=== PATIENT | female | born 1955 | race Caucasian/White ===

== ENCOUNTER → 2016-07-18 | Outpatient (CLI) | payer BC ==
[~2016-07-18] MED LIST: CPR500 PO; LRT5 PO
== END | disposition home or self-care (01) ==
LOC: C.MAMM 10:31
PROVIDERS: ATTEND Internal Medicine
DX: M85.861 Other specified disorders of bone density and structure, right lower leg (principal); M85.862 Other specified disorders of bone density and structure, left lower leg

== ENCOUNTER → 2017-02-13 | Outpatient (CLI) | payer BC | END | disposition home or self-care (01) | LOC: C.PAPS 13:53 | PROVIDERS: ATTEND Obstetrics & Gynecology | DX: Z01.419 Encounter for gynecological examination (general) (routine) without abnormal findings (principal) ==

== ENCOUNTER → 2017-03-13 | Outpatient (CLI) | payer BC ==
--- NOTE | 2017-03-13 15:50 | DIAGNOSTIC IMAGING REPORT ---
LEFT FOOT 3 VIEWS CLINICAL HISTORY: Left foot pain. FINDINGS: 3 views of the left foot are obtained. No prior studies are available for comparison at the time of dictation. The skeletal structures are mildly osteopenic. No fracture is seen. Minimal arthritic changes present at the first metatarsophalangeal joint. The joint spaces of the foot are otherwise well-maintained. The overlying soft tissues are within normal limits. IMPRESSION: No acute bony abnormality is identified in the left foot. Electronically signed by: Kain Goetz M.D. 03/13/2017 3:48 PM Dictated Date/Time: 03/13/2017 3:47 PM
== END | disposition home or self-care (01) ==
LOC: C.RAD1850 15:28
PROVIDERS: ATTEND Physician Assistant
DX: M79.672 Pain in left foot (principal)

== ENCOUNTER → 2017-03-13 | Outpatient (CLI) | payer BC ==
--- NOTE | 2017-03-13 15:18 | MAMMOGRAPHY REPORT ---
BILATERAL DIGITAL SCREENING MAMMOGRAM TOMOSYNTHESIS WITH CAD: 03/13/2017 CLINICAL HISTORY: Routine screening. Patient has no complaints. TECHNIQUE: Breast tomosynthesis in addition to standard 2D mammography was performed. Current study was also evaluated with a Computer Aided Detection (CAD) system. COMPARISON: Comparison is made to exams dated: 03/11/2016 mammogram, 03/09/2015 ultrasound, 5 mammogram, 08/27/2014 mammogram, 02/11/2014 ultrasound, and 02/11/2014 mammogram - [facility]. BREAST COMPOSITION: The tissue of both breasts is heterogeneously dense, which may obscure small mas ses. FINDINGS: The parenchymal pattern is similar to prior mammograms. There is stable asymmetry in the superior left breast on the MLO view, which appears stable dating back to at least 01/31/2013, theref ore likely benign. No developing mass, architectural distortion or cluster of suspicious microcalcif ications is seen in either breast. IMPRESSION: ACR BI-RADS CATEGORY 2: BENIGN There is no mammographic evidence of malignancy. A 1 year screening mammogram is recommended. The pa tient will receive written notification of the results. Approximately 10% of breast cancers are not detected with mammography. A negative mammographic report should not delay biopsy if a clinically suggestive mass is present. Negar Garcia M.D. ay/:03/13/2017 14:56:26 Machine Pack Assembler: Mitra BARBA)(Nancy), [facility] letter sent: Normal 1/2 BI-RADS Code: ACR BI-RADS Category 2: Benign
== END | disposition home or self-care (01) ==
LOC: C.MAMM 11:42
PROVIDERS: ATTEND Obstetrics & Gynecology
DX: Z12.31 Encounter for screening mammogram for malignant neoplasm of breast (principal)

== ENCOUNTER → 2017-03-27 | Outpatient (CLI) | payer BC ==
--- NOTE | 2017-03-27 15:18 | DIAGNOSTIC IMAGING REPORT ---
L LOWER EXT NONJOINT W/O HISTORY: 62 years-old Female M79.672 Acute foot pain, leftLeft foot pain at the base of the second through fourth toes with associated redness and swelling. Pain with weightbearing. COMPARISON: Left foot radiographs 03/13/2017 TECHNIQUE: Multiplanar multisequence MRI of the left forefoot was obtained without contrast FINDINGS: The large ywaxc-[id number] tube machine operator localizer images demonstrate no gross abnormality. There is mild first metatarsophalangeal joint space narrowing with chondral thinning and marginal spurring. Joint space narrowing with marginal spurring is also noted involving the hallux sesamoids with the first metatarsal head. There is moderate bone marrow edema noted involving the lateral hallux sesamoid and adjacent first metatarsal head as seen on image 16 series 7. There is moderate to extensive periosteal and intramedullary bone marrow edema with slightly decreased T1 signal involving the majority of the second metatarsal extending from the proximal diaphysis to the metatarsal neck nicely seen on image 18 series 7 and images 9 and 10 of series 9. Acute to subacute appearing stress fracture involves the mid diaphysis as seen on image 11 series 4 and image 9 series 8. There is also subtle increased signal within the cortex within this distribution. Mild associated soft tissue edema. This is deep to the dorsal skin marker. There is mild bone marrow edema involving the base of the second metatarsal dorsally as seen on image 27 series 7. The imaged flexor and extensor tendons are within normal limits. The plantar plates appear intact. There is no evidence of perineural fibrosis (Waldrop neuroma) or intermetatarsal bursitis. IMPRESSION: 1. Moderate to extensive periosteal and intramedullary bone marrow edema involves the majority of the second metatarsal extending from the proximal diaphysis to the metatarsal neck compatible with stress response with accompanying acute to subacute appearing nondisplaced stress fracture of the mid diaphysis. 2. Mild first MTP joint degenerative changes with moderate bone marrow edema involving the lateral hallux sesamoid and lateral first metatarsal base compatible with sesamoiditis. The above report was generated using voice recognition software. It may contain grammatical, syntax or spelling errors. Electronically signed by: Michael Ledesma M.D. 03/27/2017 3:16 PM Dictated Date/Time: 03/27/2017 2:55 PM
== END | disposition home or self-care (01) ==
LOC: C.MRI 13:22
PROVIDERS: ATTEND Physician Assistant
DX: M79.672 Pain in left foot (principal)

== ENCOUNTER → 2017-10-31 | Outpatient (CLI) | payer BC ==
[~2017-10-31] MED LIST changes: +CALC500C70 PO; +CHOL100010 PO; +CYCL0.052 OP; -LRT5 PO
[2017-10-31 13:49] LABS: BASO % 0.3 %; BASO ABS # 0.02 K/uL (0-0.2); EOS % 0.4 %; EOS ABS # 0.03 K/uL (0-0.5); HEMATOCRIT 37.5 % (37-47); HEMOGLOBIN 12.5 g/dL (12.0-16.0); IG# 0.01 K/uL (0.00-0.02); LYMPH % 26.1 %; LYMPH ABS # 1.86 K/uL (1.2-3.4); MEAN CELL VOLUME 93.8 fL (80-100); MEAN CORPUSCULAR HEMOGLOBIN 31.3 pg (25-34); MEAN CORPUSCULAR HGB CONC 33.3 g/dl (32-36); MEAN PLATELET VOLUME 11.2 fL (7.4-10.4); NEUT % 66.1 %; NEUT ABS # 4.72 K/uL (1.4-6.5); PLATELET COUNT 316 K/uL (130-400); RED CELL DISTRIBUTION WIDTH CV 14.1 % (11.5-14.5); RED CELL DISTRIBUTION WIDTH SD 48.2 fL (36.4-46.3); WHITE BLOOD COUNT 7.14 K/uL (4.8-10.8)
== END | disposition home or self-care (01) ==
LOC: C.CPL 11:17
PROVIDERS: ATTEND Urology
DX: Z01.812 Encounter for preprocedural laboratory examination (principal)

== ENCOUNTER 2017-11-16 10:39 | Day surgery (SDC) | payer BC ==
[2017-10-31 12:00] VITALS: Ht 167.6 cm; Wt 73.2 kg
--- NOTE | 2017-10-31 12:46 | PAT Medication Instructions ---
Service Date Oct 31, 2017. Current Home Medication List Cyclosporine (Ophth) (Restasis), 1 DROP OP BID Medication Instructions For Your Scheduled Surgery - Take the following medications the morning of surgery with a sip of water: Cyclosporine (Ophth) (Restasis), 1 DROP OP BID - Take the following medications as scheduled the night before surgery: Cyclosporine (Ophth) (Restasis), 1 DROP OP BID If you have any questions please call us at [phone] or [phone] or [phone]
[~2017-11-16] VITALS: Ht 167.6 cm; Wt 73.2 kg
[~2017-11-16 10:39] MED LIST changes: +ATROPINE SULFATE 0.1 MG/ML 5ML SYR IV PRN; -CALC500C70 PO; -CHOL100010 PO; +CIPROFLOXACIN / D5W 400 MG IV SCH; -CPR500 PO; +EpHEDrine SULFATE INJ 50 MG/ML AMP IV PRN; +FENTANYL CITRATE INJ 50 MCG/1 ML 2 ML VIAL IV PRN; +HYDROmorphone INJ 1 MG/ML SYR IV PRN; +LACTATED RINGER'S 1000ML 1,000 ML IV SCH; +ONDANSETRON INJ 2 MG/ML 2 ML VIAL IV PRN; +PHENYLEPHRINE 100MCG/ML 5ML SYR IV PRN; +PROMETHAZINE HCL INJ 12.5 MG in SODIUM CHLORIDE 0.9% 50ML 50 ML IV PRN
--- NOTE | 2017-11-16 10:45 | History & Physical Bridge Note ---
H&P Re-Evaluation Bridge Note: I have examined the patient, reviewed the History & Physical and in the interval since the performance of the History & Physical I have noted the following changes of clinical significance: No changes noted
[2017-11-16 11:04] VITALS: BP 132/79; PULSE 65; TEMP 36.7; O2SAT 96
[2017-11-16] MEDS ORDERED: OXYCODONE/ACETAMINOPHEN 7.5-325 TAB PO PRN (11:15)
--- NOTE | 2017-11-16 11:17 | Discharge Instructions ---
Discharge Instructions Date of Service Nov 16, 2017. Admission Reason for Admission: STONE Discharge Discharge Diagnosis / Problem: Bilateral staghorn / large stones Discharge Goals Goal(s): Decrease discomfort, Improve function Activity Recommendations Activity Limitations: resume your previous activity Lifting Limitations: gradually increase as tolerated Exercise/Sports Limitations: gradually increase as tolerated . Instructions / Follow-Up Instructions / Follow-Up May have blood in urine. May have pelvic discomfort. Call if any fevers or chills. Current Hospital Diet Patient's current hospital diet: Discharge Diet Recommended Diet: Regular Diet Procedures Procedures Performed: Cystoscopy with Right Ureteroscopy and laser lithotripsy. Pending Studies Studies pending at discharge: no Laboratory Results Lipid Panel Test 10/08/17 06:51 Range/Units Triglycerides Level 60 0-150 mg/dl Cholesterol Level 150 0-200 mg/dl HDL Cholesterol 51 mg/dl Cholesterol/HDL Ratio 2.9 LDL Cholesterol, Calculated 87 mg/dl Medical Emergencies . Who to Call and When: Medical Emergencies: If at any time you feel your situation is an emergency, please call 911 immediately. . Non-Emergent Contact Non-Emergency issues call your: Primary Care Provider, Urologist Call Non-Emergent contact if: you have a fever, temperature is above 101, temperature is above 101.5, your pain is not controlled, your pain is worsening , your pain is unusual for you . . "Provider Documentation" section prepared by Temo Puente. .
[2017-11-16] MEDS ORDERED: CIPR-255 PO (11:18)
[2017-11-16] MEDS ORDERED: PHEN-775 PO (11:18)
[2017-11-16] MEDS ORDERED: OXYC7.5T65 PO (11:18)
[2017-11-16] MEDS ORDERED: TAMS0.4C38 PO (11:18)
[2017-11-16] MEDS ORDERED: LIDOCAINE HCL 2% 2 ML VIAL (20MG/ML) ONE (11:36)
[2017-11-16] MEDS ORDERED: PROPOFOL IV EMULSION 10 MG/ML 20 ML VIAL ONE (11:36)
[2017-11-16] MEDS ORDERED: DEXAMETHASONE SOD INJ 4 MG/ML VIAL ONE (11:36)
[2017-11-16] MEDS ORDERED: ONDANSETRON INJ 2 MG/ML 2 ML VIAL ONE (11:36)
[2017-11-16] MEDS ORDERED: FENTANYL CITRATE INJ 50 MCG/1 ML 2 ML VIAL ONE (11:37)
[2017-11-16] MEDS ORDERED: MIDAZOLAM HCL 1 MG/ML 2ML VIAL ONE (11:37)
[2017-11-16] MEDS ORDERED: PHENYLEPHRINE 100MCG/ML 5ML SYR ONE (11:38)
[2017-11-16] MEDS ORDERED: EpHEDrine SULFATE 50MG/5ML SYR ONE (11:38)
[2017-11-16 12:05] LABS: CALCIUM 8.5 mg/dl (8.5-10.1); CREATININE 0.65 mg/dl (0.60-1.20); POTASSIUM 3.7 mmol/L (3.5-5.1)
[2017-11-16] MEDS ORDERED: Cysto-Conray II 17.2% 250ML BOTTLE ONE (12:06)
--- NOTE | 2017-11-16 13:00 | [facility] Operative Report ---
Operative Report Operative Date Nov 16, 2017. 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 Surgeon Kwame Estimated Blood Loss Minimal Findings Stricture distal ureter. Large 2.3 cm stone in diverticulum. Drains 6 Fr Multilength Anesthesia Type General Complication(s) none Disposition Recovery Room / PACU Indications Large bilateral stones. risks and benefits discussed at length. Description of Procedure Patient was consented and brought back to the operating room. Patient was placed under anesthesia in the supine position and moved to the dorsal lithotomy position. Patient was prepped and draped in the regular sterile fashion. A time out was completed. A 30degree Cystoscope was placed into the bladder and the entire bladder was examined. The UO's were identified. The UO was cannulized with a catheter and a retrograde pyelogram was completed. Severe narrowing was noted at the UO. A wire was then placed. This was dilated up to 15 Sami. A second safety wire was placed. A ureteral access sheath was then placed and the second safety wire was maintained. The flexible ureteroscope was taken into the ureter. The entire ureter and renal pelvis were examined. A very small stone was identified and pulverized with the laser. Multiple instillations of contrast were placed. The stone was easily seen on fluoroscopy and did not appear to be within the renal pelvis. Contrast was able to be instilled around the stone, however an infundibulum or connection was unable to be found. Multiple attempts to probe possible openings in every calyx failed to find an opening. The stone and diverticulum were not able to be accessed. The entire area was once again examined. No residual fragments or areas of concern were noted. The scope was slowly removed with the wire left in place. Contrast was placed through the scope for a pyelogram to assist in stent placement. The entire ureter was examined as the scope was slowly removed. No obstructions or other areas of concern were noted. With the wire in place, a 6 Fr Double J stent was placed. It was confirmed with fluoroscopy. With the stent in place, the bladder was emptied. The scope was removed. The patient was cleaned, aroused from anesthesia, and transferred to the pacu in stable condition having tolerated the procedure well with no complications. I was present and participated in all aspects of the procedure. The patient will be monitored in the PACU until transferred. I attest to the content of the Intraoperative Record and any orders documented therein. Any exceptions are noted below.
--- NOTE | 2017-11-16 13:30 | Anesthesiology Progress Note ---
Anesthesia Post Op Note Date & Time Nov 16, 2017 at 13:30 Vital Signs Pain Intensity: 0 Vital Signs Past 12 Hours Date Time Temp Pulse Resp B/P (MAP) Pulse Ox O2 Delivery O2 Flow Rate FiO2 11/16/17 13:20 77 16 157/87 99 Oxymask 10 11/16/17 13:10 81 18 161/91 99 Oxymask 10 11/16/17 13:03 36.5 93 18 153/84 100 Oxymask 10 11/16/17 11:04 36.7 65 16 132/79 (96) 96 Room Air Notes Mental Status: alert / awake / arousable, participated in evaluation Pt Amnestic to Procedure: Yes Nausea / Vomiting: adequately controlled Pain: adequately controlled Airway Patency, RR, SpO2: stable & adequate BP & HR: stable & adequate Hydration State: stable & adequate Anesthetic Complications: no major complications apparent
[2017-11-16 13:50] VITALS: BP 140/81; PULSE 79; TEMP 36.5; O2SAT 95
--- NOTE | 2017-11-16 14:17 | DIAGNOSTIC IMAGING REPORT ---
RETROGRADE INCLUDES KUB CLINICAL HISTORY: 62 years-old Female presenting with RT LASER LITHO AND STENT PLACEMENT. TECHNIQUE: 11 fluoroscopic image(s) recorded as part of an intraoperative procedure. COMPARISON: Plain radiograph from 10/08/2017. FINDINGS/IMPRESSION: A catheter and guidewire were advanced into the right ureter. A dominant calculus in the upper pole the right ureter is noted. The right urinary collecting system was subsequently opacified with contrast, demonstrating a mildly dilated system. The calculus may be contained within a calyceal diverticulum. Subsequently, a right ureteral stent was placed. Please see surgical report for further details. Fluoroscopy dosage (mGy): [id number]. Fluoroscopy time: 115.0 seconds. Number or time of fluoroscopic spot images: 0. Electronically signed by: Ricki Perez M.D. 11/16/2017 2:16 PM Dictated Date/Time: 11/16/2017 2:13 PM
[2017-11-16 14:30] VITALS: BP 160/82; PULSE 60; O2SAT 94
[2017-11-16 14:55] VITALS: BP 152/89; PULSE 68; TEMP 36.3; O2SAT 94
== END 2017-11-16 15:05 | disposition home or self-care (01) ==
LOC: C.ACU 10:39
PROVIDERS: ATTEND Urology
DX: N20.0 Calculus of kidney (principal); J44.9 Chronic obstructive pulmonary disease, unspecified; E11.9 Type 2 diabetes mellitus without complications; I47.1 Supraventricular tachycardia; F17.200 Nicotine dependence, unspecified, uncomplicated; M25.50 Pain in unspecified joint; Z87.440 Personal history of urinary (tract) infections

== ENCOUNTER → 2017-11-23 | Outpatient (CLI) | payer BC ==
[~2017-11-23] MED LIST changes: -ATROPINE SULFATE 0.1 MG/ML 5ML SYR IV PRN; +CIPR-255 PO; -CIPROFLOXACIN / D5W 400 MG IV SCH; -EpHEDrine SULFATE INJ 50 MG/ML AMP IV PRN; -FENTANYL CITRATE INJ 50 MCG/1 ML 2 ML VIAL IV PRN; -HYDROmorphone INJ 1 MG/ML SYR IV PRN; -LACTATED RINGER'S 1000ML 1,000 ML IV SCH; -ONDANSETRON INJ 2 MG/ML 2 ML VIAL IV PRN; +OXYC7.5T65 PO; +PHEN-775 PO; -PHENYLEPHRINE 100MCG/ML 5ML SYR IV PRN; -PROMETHAZINE HCL INJ 12.5 MG in SODIUM CHLORIDE 0.9% 50ML 50 ML IV PRN; +TAMS0.4C38 PO
--- NOTE | 2017-11-23 23:32 | DIAGNOSTIC IMAGING REPORT ---
KUB CLINICAL HISTORY: Nephrolithiasis. FINDINGS: 2 AP supine abdominal radiographs are compared to study dated 10/08/2017 and correlated with abdominal CT dated 3818. A right ureteral stent is new from previous. No calcifications are seen along the course of the stent. A large heterogeneous staghorn calculus is again noted in the left kidney. This measures 4.2 x 3.4 cm. There is no radiographic evidence of left ureteral calculus. A lamellated stone projecting over the upper pole of the right kidney is unchanged and measures 1.4 cm. There is a nonobstructed abdominal bowel gas pattern noting moderate colonic fecal retention. Phleboliths are noted in the pelvis. The skeletal structures are osteopenic. Lumbosacral spondylosis is observed. IMPRESSION: 1. A right ureteral stent is new from previous. No calcifications are seen along the course of the stent. 2. A staghorn calculus in the left kidney and a large calculus projecting over the right upper pole are unchanged from previous Electronically signed by: Kain Goetz M.D. 11/23/2017 11:31 PM Dictated Date/Time: 11/23/2017 11:29 PM
== END | disposition home or self-care (01) ==
LOC: C.RAD 19:40
PROVIDERS: ATTEND Urology
DX: N20.0 Calculus of kidney (principal); Z96.0 Presence of urogenital implants

== ENCOUNTER 2019-10-15 12:58 | Observation (INO) ==
[2019-10-15] MEDS ORDERED: OPTIRAY 320 125ml IV PRN (13:53)
[2019-10-15 14:06] LABS: Basophils # (auto) 0.04 K/uL (0-0.2); Basophils % (auto) 0.7 %; Eosinophils # (auto) 0.16 K/uL (0-0.5); Eosinophils % (auto) 2.6 %; Hematocrit (blood only) 40.4 % (37-47); Hemoglobin 13.4 g/dL (12.0-16.0); Immature Granulocytes # (auto) 0.01 K/uL (0.00-0.02); Immature Granulocytes % (auto) 0.2 %; Lymphocytes # (auto) 2.07 K/uL (1.2-3.4); Lymphocytes % (auto) 33.7 %; Mean Corpuscular Hemoglobin 31.6 pg (25-34); Mean Corpuscular Hgb Conc 33.2 g/dL (32-36); Mean Corpuscular Volume 95.3 fL (80-100); Mean Platelet Volume 10.3 fL (7.4-10.4); Monocytes # (auto) 0.44 K/uL (0.11-0.59); Monocytes % (auto) 7.2 %; Neutrophils # (auto) 3.43 K/uL (1.4-6.5); Neutrophils % (auto) 55.6 %; Platelet Count 311 K/uL (130-400); RDW Coefficient of Variation 14.6 % (11.5-14.5); RDW Standard Deviation 50.6 fL (36.4-46.3); Red Blood Count 4.24 M/uL (4.2-5.4); White Blood Count 6.15 K/uL (4.8-10.8)
--- NOTE | 2019-10-15 14:11 | Emergency Department Note ---
History of Present Illness General Chief complaint: Neuro Symptoms/Deficit Stated complaint: UNABLE TO BALANCE, VISUAL DISTURBANCE Time Seen by Provider: 10/15/19 13:36 Source: patient History of Present Illness Provider complaint: Double vision Onset (ago): hour(s) Location: eyes Radiation: non-radiation Severity: moderate Maximum Pain Intensity: 1 Quality: + other (Double vision with both eyes open.) Exacerbated By: + other (Opening both eyes) Associated symptoms: + other (Difficulty walking with leaning toward the left and vertigo); no chest pain, no cough, no fever/chills, no headaches, no nausea/vomiting and no shortness of breath This is a 64-year-old female who presents with neurologic symptoms starting at noon today. The patient states that she went to bed at 6 AM and woke up at noon. She immediately felt symptoms of double vision and vertigo. She stated that the double vision goes away when she closes either eye but gets worse when she has both eyes open. When she tries to walk she feels like things are moving and she leans toward the left. She suspects some slight weakness on the left side but she is able to bear weight on the left leg. She denies any numbness or weakness, difficulty swallowing, visual loss, difficulty with her speech or mentation or headache. She has had no fever, cough or cold symptoms, chest pain or shortness of breath. She has no prior history of stroke. She does smoke a pack per day. She has a history of prediabetes and previously had PVCs. No history of internal bleeding in the brain or the GI system. Home Medications Home Medications Medication Instructions Recorded Confirmed Type acetaminophen 1,000 mg PO Q6H PRN 01/05/18 10/15/19 History cholecalciferol (vitamin D3) 50 2,000 units PO DAILY 03/20/19 10/15/19 History mcg (2,000 unit) tablet cyclosporine [Restasis] 1 drp OPB BID 10/15/19 10/15/19 History Allergies Allergy/AdvReac Type Severity Reaction Status Date / Time thimerosal Allergy Unknown EYE Verified 10/15/19 14:27 SWELLING DURING EYE DROP USE Past Med/Surg History Medical History Arrhythmia HX PVC'S/NSVT/SVT Chronic pain in left foot FELT 2/2 PRIOR FRACTURE (2ND METATARSAL) Emphysema lung H/O infertility History of deviated nasal septum Kidney stones Prediabetes DIET CONTROLLED Surgical History H/O branchial cleft cyst S/P EXCISION (LEFT) H/O breast biopsy benign lump, 1977 H/O esophagogastroduodenoscopy History of colonoscopy History of cystoscopy with ureteroscopy History of lumpectomy of right breast History of removal of calculus of renal pelvis through percutaneous nephrostomy History of tonsillectomy 1967 History of tooth extraction Family History Mother Family history of diabetes mellitus Lupus Systemic lupus erythematosus Acute subdural hematoma Grandmother No problems noted. Aunt Diabetes maternal Father No problems noted. Grandfather History of esophageal cancer Sister Hypertension Rheumatoid arthritis Dyslipidemia Atrial fibrillation Uncle Cardiac disorder maternal Grandfather (Maternal) Esophageal cancer Grandmother (Paternal) Dementia Grandmother (Maternal) Breast cancer Dx 80's/90's Other Bladder cancer Denies family history of Colon cancer Ovarian cancer Social History Preferred Language: Hungarian Communication Ability: Effective Visual Impairment: No Limitations Emergency Room Physician Required: No Beliefs That Will Affect Care: None Current Living Situation: Spouse Feels Safe at Home: Yes Smoking Status: Current every day smoker Tobacco Type: cigarettes ; Cigarettes Per Day: X 40 YEARS ; Second Hand Exposure: Yes (SPOUSE) ; Hx Alcohol Use: No Hx Substance Use: No Review of Systems See HPI for pertinent positives & negatives. and A total of 10 systems reviewed and were otherwise negative Physical Exam Vital Signs Vital Signs - 24 hr 10/15/19 13:04 10/15/19 14:15 10/15/19 14:30 Temperature 36.4 C L Temperature Source Oral Pulse Rate 78 Pulse Rate [Finger] 78 64 Respiratory Rate 20 16 16 Respiratory Effort / Characteristics Non-Labored Respiratory Depth Normal Blood Pressure 139/79 Blood Pressure [Right Arm] 147/95 H 142/69 H Blood Pressure Mean 99 Blood Pressure Mean [Right Arm] 112 93 Pulse Oximetry 96 95 96 Oxygen Delivery Method Room Air Room Air Sepsis Recent Fever Within 48 Hours No Sepsis Action Taken by Nursing No Action Required 10/15/19 15:27 10/15/19 15:59 Temperature Temperature Source Pulse Rate Pulse Rate [Finger] 72 81 Respiratory Rate 16 16 Respiratory Effort / Characteristics Non-Labored Non-Labored Respiratory Depth Normal Normal Blood Pressure Blood Pressure [Right Arm] 147/97 H 159/73 H Blood Pressure Mean Blood Pressure Mean [Right Arm] 113 101 Pulse Oximetry 96 96 Oxygen Delivery Method Room Air Sepsis Recent Fever Within 48 Hours Sepsis Action Taken by Nursing Constitutional: Vital signs reviewed. Eyes: Pupils are equal round reactive to light. Conjunctiva are noninjected. ENT: Pharynx is clear without erythema or exudate. Mucous membranes are moist. Neck supple without meningeal signs. Respiratory: Clear to auscultation bilaterally. Breath sounds are equal bilaterally. Cardiovascular: Regular rate and rhythm. No rubs or gallops. GI: Soft, nondistended and nontender. Bowel sounds are present. Musculoskeletal: No peripheral edema. No lower extremity tenderness. Integumentary: No cyanosis. or jaundice. Neurologic: The patient is awake and alert. Cranial nerves II-XII are intact, except unable to move the right eye medially. Motor is 5 out of 5 all extre mities, with very subtle difference in strength on the left compared to the right in both upper and lower extremities. Sensation is intact to light touch all extremities. Normal gait. No pronator drift. No dysdiadochokinesis. No limb ataxia. No visual field loss via confrontation. Left lateral nystagmus which is unidirectional with questionable rotatory nystagmus in the left eye. Psychiatric: Normal affect. Not anxious appearing. Course Administered Medications Gadobutrol (Gadavist 65ml) 7.2 ml IV ONCE PRN PRN Reason: Interaction Checking Stop: 10/19/19 17:21 Last Admin: 10/15/19 17:23 Dose: 7.2 ml Documented by: [id number] Ioversol (Optiray 320 125ml) 118 ml IV ONCE PRN PRN Reason: Interaction Checking Stop: 10/19/19 13:52 Last Admin: 10/15/19 13:53 Dose: 118 ml Documented by: [id number] Discontinued Medications Meclizine HCl (Antivert) 25 mg PO NOW STA Stop: 10/15/19 15:05 Last Admin: 10/15/19 15:27 Dose: 25 mg Documented by: [id number] Medical Decision Making Differential Diagnosis CVA, EOM palsy, intracranial mass, intracranial bleed, metabolic derangement Medical Records Attestation: I reviewed the patient's medical records. I did perform a limited focused review of portions of the patient's old chart on the electronic medical record. The patient has had no recent pertinent visits to this hospital. Home Medications Current Medication List: was personally reviewed by me Laboratory Data Attestation: I reviewed the patient's lab results. Result diagrams: 10/15/19 13:55 10/15/19 13:55 Lab Results 10/15/19 10/15/19 10/15/19 Range/Units 13:55 13:55 13:55 WBC 6.15 (4.8-10.8) K/uL RBC 4.24 (4.2-5.4) M/uL Hgb 13.4 (12.0-16.0) g/dL Hct 40.4 (37-47) % MCV 95.3 (80-100) fL MCH 31.6 (25-34) pg MCHC 33.2 (32-36) g/dL RDW Std Deviation 50.6 H (36.4-46.3) fL RDW Coeff of Zack 14.6 H (11.5-14.5) % Plt Count 311 (130-400) K/uL MPV 10.3 (7.4-10.4) fL Immature Gran % (Auto) 0.2 % Neut % (Auto) 55.6 % Lymph % (Auto) 33.7 % [place] % (Auto) 7.2 % Eos % (Auto) 2.6 % Baso % (Auto) 0.7 % Neut # (Auto) 3.43 (1.4-6.5) K/uL Lymph # (Auto) 2.07 (1.2-3.4) K/uL [place] # (Auto) 0.44 (0.11-0.59) K/uL Eos # (Auto) 0.16 (0-0.5) K/uL Baso # (Auto) 0.04 (0-0.2) K/uL Immature Gran # (Auto) 0.01 (0.00-0.02) K/uL PT 10.6 (9.0-12.0) Seconds INR 1.0 (0.9-1.1) APTT 25.0 (21.0-31.0) Seconds PTT Ratio 0.9 Sodium (136-145) mmol/L Potassium (3.5-5.1) mmol/L Chloride (98-107) mmol/L Carbon Dioxide (21-32) mmol/L Anion Gap (3-11) BUN (7-18) mg/dl Creatinine (0.6-1.2) mg/dl Est Cr Clr Drug Dosing ml/min Est GFR ( Amer) Est GFR (Non-Af Amer) BUN/Creatinine Ratio (10-20) Glucose (70-99) mg/dl POC Glucose (70-99) mg/dl Calcium (8.5-10.1) mg/dl Magnesium (1.8-2.4) mg/dl Total Bilirubin (0.2-1) mg/dl AST (15-37) U/L ALT (12-78) U/L Alkaline Phosphatase (45-117) U/L Troponin I (0-0.045) ng/ml Total Protein (6.4-8.2) gm/dl Albumin (3.4-5.0) gm/dl Globulin (2.5-4.0) gm/dl Albumin/Globulin Ratio (0.9-2) TSH (0.300-4.500) uIu/ml Blood Type O Positive Antibody Screen NEGATIVE 10/15/19 10/15/19 10/15/19 Range/Units 13:55 13:55 14:01 WBC (4.8-10.8) K/uL RBC (4.2-5.4) M/uL Hgb (12.0-16.0) g/dL Hct (37-47) % MCV (80-100) fL MCH (25-34) pg MCHC (32-36) g/dL RDW Std Deviation (36.4-46.3) fL RDW Coeff of Zack (11.5-14.5) % Plt Count (130-400) K/uL MPV (7.4-10.4) fL Immature Gran % (Auto) % Neut % (Auto) % Lymph % (Auto) % [place] % (Auto) % Eos % (Auto) % Baso % (Auto) % Neut # (Auto) (1.4-6.5) K/uL Lymph # (Auto) (1.2-3.4) K/uL [place] # (Auto) (0.11-0.59) K/uL Eos # (Auto) (0-0.5) K/uL Baso # (Auto) (0-0.2) K/uL Immature Gran # (Auto) (0.00-0.02) K/uL PT (9.0-12.0) Seconds INR (0.9-1.1) APTT (21.0-31.0) Seconds PTT Ratio Sodium 141 (136-145) mmol/L Potassium 3.9 (3.5-5.1) mmol/L Chloride 109 H (98-107) mmol/L Carbon Dioxide 25 (21-32) mmol/L Anion Gap 7.0 (3-11) BUN 12 (7-18) mg/dl Creatinine 0.88 (0.6-1.2) mg/dl Est Cr Clr Drug Dosing 67.6 ml/min Est GFR ( Amer) 81.6 Est GFR (Non-Af Amer) 70.4 BUN/Creatinine Ratio 13.1 (10-20) Glucose 105 H (70-99) mg/dl POC Glucose 115 H (70-99) mg/dl Calcium 8.6 (8.5-10.1) mg/dl Magnesium 2.1 (1.8-2.4) mg/dl Total Bilirubin 0.4 (0.2-1) mg/dl AST 11 L (15-37) U/L ALT 14 (12-78) U/L Alkaline Phosphatase 54 (45-117) U/L Troponin I < 0.015 (0-0.045) ng/ml Total Protein 8.5 H (6.4-8.2) gm/dl Albumin 3.2 L (3.4-5.0) gm/dl Globulin 5.3 H (2.5-4.0) gm/dl Albumin/Globulin Ratio 0.6 L (0.9-2) TSH 1.480 (0.300-4.500) uIu/ml Blood Type Antibody Screen Imaging Data Radiologist's Impression: CT angio neck with con CLINICAL HISTORY: CNIII deficit right/vertigo eval for stroke COMPARISON STUDY: No previous studies for comparison. TECHNIQUE: CT angiography was performed from the aortic arch to the skull base. MIP imaging was performed. The patient was scanned in a dynamic helical fashion during intravenous administration of 118 cc of Optiray 320. A dose lowering technique was utilized adhering to the principles of ALARA. CT DOSE: Technique: CT angiogram of the carotid and vertebral arteries was obtained using intravenous contrast and 3-D reconstruction. NASCET criteria was utilized. Findings: Visualized portions of the lung apices reveal pulmonary emphysema. The right carotid revealed no evidence of aneurysm and no evidence of dissection. There is no evidence of hemodynamic significant stenosis. There are mild to moderate atheromatous changes present at the level of the carotid bulb. The left carotid revealed no evidence of hemodynamic significant stenosis. There is no evidence of aneurysm. There is no evidence of dissection. There are mild atheromatous changes present the level of the left carotid bulb There is no evidence of hemodynamically significant vertebral stenosis. There is no evidence of vertebral dissection. IMPRESSION: No evidence of hemodynamically significant carotid or vertebral artery stenosis. No evidence of dissection. ACT 112: Negative or not required by law. Electronically signed by: Star Mcclelland M.D. 10/15/2019 2:26 PM Dictated: 10/15/19 1422 Transcribed: 10/15/19 1422 CTA ANGIOGRAPHY OF THE HEAD CLINICAL HISTORY: CNIII deficit right/vertigo evaluate for cerebrovascular accident. COMPARISON STUDY: No previous studies for comparison. TECHNIQUE: Helical axial images of the head were obtained following uneventful intravenous administration of 118 cc of Optiray 320. Sagittal and coronal reconstructions were viewed as well as maximal intensity projections on an independent 3-D workstation. Automated exposure control was utilized for the study. A dose lowering technique was utilized adhering to the principles of ALARA. FINDINGS: Please note that the CTA of the neck will be reported separately. Note is made of apparent mild increased enhancement of the bilateral inferior rectus muscles and the right superior oblique muscle. The bilateral M1, M2, A1 and A2 segments are patent. There is a tiny 2 mm aneurysm arising from the lateral aspect of the left supraclinoid ICA. No additional intracranial aneurysms are identified. There is no intraluminal thrombus. No abrupt vessel cut off is identified. The posterior circulation is intact. No acute intracranial hemorrhage, midline shift or mass effect is present. Ventricular system is normal. Basilar cisterns are patent. There are no extra axial collections. IMPRESSION: 1. No intraluminal thrombus or abrupt vessel cut off. No acute intracranial fi ndings. 2. 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 3. Apparent extraocular muscle enhancement, as described above. This is likely artifactual however findings could be correlated with TSH to exclude the possibility of thyroid ophthalmopathy. ACT 112: Negative or not required by law. Electronically signed by: Omar Nichols M.D. 10/15/2019 2:38 PM Dictated: 10/15/19 1422 Transcribed: 10/15/191421 CT head/brain wo con CLINICAL HISTORY: 64 years-old Female with CNIII deficit right/vertigo eval for cva. Acute strokelike symptoms TECHNIQUE: Multiple axial CT images of the head were obtained without contrast. A dose lowering technique was utilized adhering to the principles of ALARA. CT DOSE: 1028.30 mGy.cm COMPARISON: None. FINDINGS: No acute intracranial hemorrhage, midline shift, intracranial mass, hydrocephalus, territorial ischemia or abnormal extra-axial collection. The calvarium is intact. The paranasal sinuses, mastoid air cells, and middle ear cavities are clear. IMPRESSION: No acute intracranial abnormality. ACT 112: Negative or not required by law. The above report was generated using voice recognition software. It may contain grammatical, syntax or spelling errors. Electronically signed by: Michael Ledesma M.D. 10/15/2019 2:16 PM Dictated: 10/15/19 141 Transcribed: 10/15/191412 ECG Data Attestation: I personally reviewed and interpreted this ECG as follows: Indication: + other (Stroke symptoms) Rate (beats per minute): 70 Rhythm: + normal sinus ECG Intervals/blocks: no Left bundle branch block ECG ST segments: no ST elevation ECG Findings: + PVCs Blood Pressure Blood Pressure Findings: Elevated blood pressure Blood Pressure Disposition: further management by hospitalist [facility] Narrative I did evaluate the patient as noted above. The patient has diplopia and vertigo . She has an obvious palsy to her right eye and has significant nystagmus to the left eye including a possible rotatory component. I did immediately call a stroke alert. I did speak to Dr. Zepeda at stroke neurology. He agreed with me that she is not an IV TPA candidate. She had wake-up symptoms and was last known well at 6 AM. IV access was established. I did place an order for continuous cardiac monitoring. The monitor showed normal sinus rhythm with a rate of 76. I did order and personally review the patient's 12-lead EKG as described above. I did order and review the patient's blood work as noted in the electronic medical record. CBC and electrolytes are unremarkable. TSH is within normal limits. I did order a CT of the head and CT angiogram of the head and neck. I did review the images myself as well as the radiology report as described above. She has a incidental 2 mm supraclinoid aneurysm. She also has enhancement of the extraocular muscles including the inferior rectus muscles bilaterally and the right superior oblique muscle. I did treat the patient with Antivert with no improvement of her symptoms. I did discuss the case with Dr. Dunn of neurology who recommended obtaining MRI with and without contrast of the brain and orbits. I did go ahead and order this and talk to the patient and her . I did recommend hospitalization for further care and evaluation. I did discuss the case with the hospitalist and case fitter. The MRI is currently pending. Impression & Plan Diplopia, Vertigo, Extraocular muscle palsy of right eye, Ataxia Discharge Plan Visit Data Chief Complaint: Neuro Symptoms/Deficit Stated Complaint: UNABLE TO BALANCE, VISUAL DISTURBANCE ED Provider: Sylvain Seaman Discharge Problem: Diplopia, Vertigo, Extraocular muscle palsy of right eye, Ataxia Discharge Instructions Interventions: ED Discharge Assessment Last Done: 10/15/19 16:39 Forms Stand Alone Forms: My [facility] [place] [employer] SMS Prescriptions Prescriptions: No Action cholecalciferol (vitamin D3) 2,000 unit tablet 2,000 units PO DAILY RF: 0 acetaminophen 500 mg Tablet 1,000 mg PO Q6H PRN (Reason: Pain) RF: 0 Restasis 0.05 % dropperette 1 drp OPB BID RF: 0 Referrals Referrals: Alejandro Bacon MD [Primary Care Provider] -
--- NOTE | 2019-10-15 14:17 | CT Scan Report ---
CT head/brain wo con CLINICAL HISTORY: 64 years-old Female with CNIII deficit right/vertigo eval for cva. Acute strokelik e symptoms TECHNIQUE: Multiple axial CT images of the head were obtained without contrast. A dose lowering tech nique was utilized adhering to the principles of ALARA. CT DOSE: 1028.30 mGy.cm COMPARISON: None. FINDINGS: No acute intracranial hemorrhage, midline shift, intracranial mass, hydrocephalus, territorial ischem ia or abnormal extra-axial collection. The calvarium is intact. The paranasal sinuses, mastoid air cells, and middle ear cavities are clear . IMPRESSION: No acute intracranial abnormality. ACT 112: Negative or not required by law. The above report was generated using voice recognition software. It may contain grammatical, syntax o r spelling errors. Electronically signed by: Michael Ledesma M.D. 10/15/2019 2:16 PM
[2019-10-15 14:20] LABS: Partial Thromboplastin Ratio 0.9; Prothrombin Time 10.6 Seconds (9.0-12.0)
--- NOTE | 2019-10-15 14:27 | CT Scan Report ---
CT angio neck with con CLINICAL HISTORY: CNIII deficit right/vertigo eval for stroke COMPARISON STUDY: No previous studies for comparison. TECHNIQUE: CT angiography was performed from the aortic arch to the skull base. MIP imaging was perfo rmed. The patient was scanned in a dynamic helical fashion during intravenous administration of 118 c c of Optiray 320. A dose lowering technique was utilized adhering to the principles of ALARA. CT DOSE: Technique: CT angiogram of the carotid and vertebral arteries was obtained using intravenous contrast and 3-D reconstruction. NASCET criteria was utilized. Findings: Visualized portions of the lung apices reveal pulmonary emphysema. The right carotid revealed no evidence of aneurysm and no evidence of dissection. There is no evidenc e of hemodynamic significant stenosis. There are mild to moderate atheromatous changes present at the level of the carotid bulb. The left carotid revealed no evidence of hemodynamic significant stenosis. There is no evidence of an eurysm. There is no evidence of dissection. There are mild atheromatous changes present the level of the left carotid bulb There is no evidence of hemodynamically significant vertebral stenosis. There is no evidence of verte bral dissection. IMPRESSION: No evidence of hemodynamically significant carotid or vertebral artery stenosis. No evidence of disse ction. ACT 112: Negative or not required by law. Electronically signed by: Star Mcclelland M.D. 10/15/2019 2:26 PM
[2019-10-15 14:32] LABS: Alanine Aminotransferase 14 U/L (12-78); Albumin Globulin Ratio 0.6 (0.9-2); Albumin Level 3.2 gm/dl (3.4-5.0); Alkaline Phosphatase 54 U/L (45-117); Aspartate Aminotransferase 11 U/L (15-37); BUN Creatinine Ratio 13.1 (10-20); Bilirubin,Total 0.4 mg/dl (0.2-1); Blood Urea Nitrogen 12 mg/dl (7-18); Calcium 8.6 mg/dl (8.5-10.1); Carbon Dioxide 25 mmol/L (21-32); Chloride 109 mmol/L (98-107); Creatinine Clr Calc Pharmacy 67.6 ml/min; Est GFR (African American) 81.6; Est GFR (Non-African American) 70.4; Globulin 5.3 gm/dl (2.5-4.0); Glucose 105 mg/dl (70-99); Magnesium 2.1 mg/dl (1.8-2.4); Potassium 3.9 mmol/L (3.5-5.1); Sodium 141 mmol/L (136-145); Total Protein 8.5 gm/dl (6.4-8.2); Troponin I < 0.015 ng/ml (0-0.045)
--- NOTE | 2019-10-15 14:39 | CT Scan Report ---
CTA ANGIOGRAPHY OF THE HEAD CLINICAL HISTORY: CNIII deficit right/vertigo evaluate for cerebrovascular accident. COMPARISON STUDY: No previous studies for comparison. TECHNIQUE: Helical axial images of the head were obtained following uneventful intravenous administr ation of 118 cc of Optiray 320. Sagittal and coronal reconstructions were viewed as well as maximal i ntensity projections on an independent 3-D workstation. Automated exposure control was utilized for the study. A dose lowering technique was utilized adhering to the principles of ALARA. FINDINGS: Please note that the CTA of the neck will be reported separately. Note is made of apparent mild increased enhancement of the bilateral inferior rectus muscles and the right superior oblique mu scle. The bilateral M1, M2, A1 and A2 segments are patent. There is a tiny 2 mm aneurysm arising from the lateral aspect of the left supraclinoid ICA. No additional intracranial aneurysms are identified . There is no intraluminal thrombus. No abrupt vessel cut off is identified. The posterior circulatio n is intact. No acute intracranial hemorrhage, midline shift or mass effect is present. Ventricular s ystem is normal. Basilar cisterns are patent. There are no extra axial collections. IMPRESSION: 1. No intraluminal thrombus or abrupt vessel cut off. No acute intracranial findings. 2. 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 3. Apparent extraocular muscle enhancement, as described above. This is likely artifactual however fi ndings could be correlated with TSH to exclude the possibility of thyroid ophthalmopathy. ACT 112: Negative or not required by law. Electronically signed by: Omar Nichols M.D. 10/15/2019 2:38 PM
[2019-10-15] MEDS ORDERED: MECLIZINE HCL 25 MG TAB PO STA (15:04)
--- NOTE | 2019-10-15 16:45 | History & Physical Report ---
Date of Service October 15, 2019 Assessment & Plan (1) Diplopia: sudden onset, concerning for ischemic stroke causing nerve palsy on exam, right eye cannot move medially past midline left eye is down and out, nystagmus is seen strength is intact bilaterally, normal finger to nose testing, no pronator drift CT head normal, CTA head and neck without significant abnormality MRI brain with and without contrast, no acute stroke seen MR orbit, normal observe on tele echo with bubble study stroke order set with neuro checks consult Dr. Dunn to see tomorrow start on aspirin 81mg daily no indication for tPA (2) Vertigo: (3) Arrhythmia: h/o PVC, she wore a 30 day monitor and PVC were very infrequent (4) Prediabetes: diabetic diet, continue diet controlled (5) Tobacco abuse: smokes 1ppd for 40+ years educated on stopping History of Present Illness Chief Complaint: I woke up with double vision Primary Care Provider: Alejandro Bacon MD 64 yo female with history of pre-diabetes, tobacco abuse who woke up today at noon with new onset double vision and vertigo. She said that she went to bed a 6am and she felt fine. She said she felt normal all day yesterday as well. Eating and drinking normally. Normal vision. After sleeping for 6 hours she woke up at 1200 and immediately knew something was wrong. Her vision was double and the room was spinning. When she tried to walk she was leaning hard to the left, she did not fall but had to hold onto something and then had to sit down. She said that the double vision resolved by covering either one of her eyes, but she noticed the left eye was not as clear when seeing. No history of a similar episode. She has chronic dry eyes and her eyes are always dry, this has been going on for years. In the ED she clearly had some issues with EOM in both eyes. CT head and CTA head and neck were normal. Dr. Seaman discussed with Dr. Dunn, he recommended MRI brain and MRI orbits with and without contrast. Allergies Allergy/AdvReac Type Severity Reaction Status Date / Time thimerosal Allergy Unknown EYE Verified 10/15/19 14:27 SWELLING DURING EYE DROP USE Home Medications Home Medications Medication Instructions Recorded Confirmed Type acetaminophen 1,000 mg PO Q6H PRN 01/05/18 10/15/19 History cholecalciferol (vitamin D3) 50 2,000 units PO DAILY 03/20/19 10/15/19 History mcg (2,000 unit) tablet cyclosporine [Restasis] 1 drp OPB BID 10/15/19 10/15/19 History Past Med/Surg History Medical History Arrhythmia HX PVC'S/NSVT/SVT Chronic pain in left foot FELT 2/2 PRIOR FRACTURE (2ND METATARSAL) Emphysema lung H/O infertility History of deviated nasal septum Kidney stones Prediabetes DIET CONTROLLED Surgical History H/O branchial cleft cyst S/P EXCISION (LEFT) H/O breast biopsy benign lump, 1977 H/O esophagogastroduodenoscopy History of colonoscopy History of cystoscopy with ureteroscopy History of lumpectomy of right breast History of removal of calculus of renal pelvis through percutaneous nephrostomy History of tonsillectomy 1967 History of tooth extraction Family History Mother Family history of diabetes mellitus Lupus Systemic lupus erythematosus Acute subdural hematoma Grandmother No problems noted. Aunt Diabetes maternal Father No problems noted. Grandfather History of esophageal cancer Sister Hypertension Rheumatoid arthritis Dyslipidemia Atrial fibrillation Uncle Cardiac disorder maternal Grandfather (Maternal) Esophageal cancer Grandmother (Paternal) Dementia Grandmother (Maternal) Breast cancer Dx 80's/90's Other Bladder cancer Denies family history of Colon cancer Ovarian cancer Social History Preferred Language: [place] Communication Ability: Effective Visual Impairment: No Limitations Inspector Barrel Required: No Beliefs That Will Affect Care: None Current Living Situation: Spouse Other Information That Helps Us Care for You: No Feels Safe at Home: Yes Safety Concerns: Feels Safe At This Time Smoking Status: Current every day smoker Tobacco Type: cigarettes ; Cigarettes Per Day: X 40 YEARS ; Do You Dip or Chew Tobacco: No ; Second Hand Exposure: Yes (SPOUSE) ; Hx Alcohol Use: No Hx Substance Use: No Review of Systems Review of Systems: All systems reviewed & are unremarkable except as noted in HPI & below Constitutional: no fever, no chills, no sweats, no body aches, no fatigue, no weakness and no insomnia Eyes: + corrective lenses, + diplopia, + dry eyes and + itchy eyes; no blind spots, no discharge, no eye pain, no photophobia and no spots in vision Respiratory: no cough and no dyspnea Cardiovascular: no chest pain, no palpitations and no edema Gastrointestinal: no abdominal pain, no nausea, no vomiting, no constipation and no diarrhea/loose stools Musculoskeletal: no back pain, no joint pain, no myalgia and no muscle weaknes s Integumentary: no rash Neurologic: + unsteadiness and + dizziness; no gait abnormality, no falls, no localized weakness, no paralysis, no numbness, no syncope, no headache(s), no abnormal speech, no behavioral changes, no confusion and no memory loss Physical Exam Constitutional: WD/WN, vitals as above Eyes: + eyelid abnormality (mild ptosis on left), + scleral abnormality (red bilaterally), reactive pupils, + EOM movement deficit (right eye cannot adduct, left eye down and out, + nystagmus) and + nystagmus (left eye) ENMT: external ear and nose normal, oropharynx normal Neck: trachea midline, no thyromegaly Respiratory: normal respiratory effort, lungs clear to auscultation Cardiovascular: RRR, no murmur, no edema Gastrointestinal (Abdomen): normal bowel sounds, soft, nontender, no hepatosplenomegaly Musculoskeletal: no cyanosis or clubbing, extremities motor strength 5/5 Skin: no rashes, warm and dry Neurologic: patellar DTR's 2+ bilat, sensation intact and PERRL, EOMI, a ccommodation nl, no face palsy, no dysarthria Psychiatric: A+Ox3, euthymic affect Lymphatic: no cervical or axillary lymphadenopathy Results & Data Results & Data ([facility]) Vital Signs (Past 12 Hours) Vital Signs Temp Pulse Pulse Resp BP BP Pulse Ox 10/15/19 15:59 81 16 159/73 H 96 10/15/19 15:27 72 16 147/97 H 96 10/15/19 14:30 64 16 142/69 H 96 10/15/19 14:15 78 16 147/95 H 95 10/15/19 13:04 36.4 C L 78 20 139/79 96 Laboratory Results Laboratory Results - last 24 hr 10/15/19 10/15/19 10/15/19 13:55 13:55 13:55 WBC 6.15 RBC 4.24 Hgb 13.4 Hct 40.4 MCV 95.3 MCH 31.6 MCHC 33.2 RDW Std Deviation 50.6 H RDW Coeff of Zack 14.6 H Plt Count 311 MPV 10.3 Immature Gran % (Auto) 0.2 Neut % (Auto) 55.6 Lymph % (Auto) 33.7 [place] % (Auto) 7.2 Eos % (Auto) 2.6 Baso % (Auto) 0.7 Neut # (Auto) 3.43 Lymph # (Auto) 2.07 [place] # (Auto) 0.44 Eos # (Auto) 0.16 Baso # (Auto) 0.04 Immature Gran # (Auto) 0.01 PT 10.6 INR 1.0 APTT 25.0 PTT Ratio 0.9 Sodium Potassium Chloride Carbon Dioxide Anion Gap BUN Creatinine Est Cr Clr Drug Dosing Est GFR ( Amer) Est GFR (Non-Af Amer) BUN/Creatinine Ratio Glucose POC Glucose Estimat Average Glucose Hemoglobin A1c Calcium Magnesium Total Bilirubin AST ALT Alkaline Phosphatase Troponin I Total Protein Albumin Globulin Albumin/Globulin Ratio TSH Blood Type O Positive Antibody Screen NEGATIVE 10/15/19 10/15/19 10/15/19 13:55 13:55 13:55 WBC RBC Hgb Hct MCV MCH MCHC RDW Std Deviation RDW Coeff of Zack Plt Count MPV Immature Gran % (Auto) Neut % (Auto) Lymph % (Auto) [place] % (Auto) Eos % (Auto) Baso % (Auto) Neut # (Auto) Lymph # (Auto) [place] # (Auto) Eos # (Auto) Baso # (Auto) Immature Gran # (Auto) PT INR APTT PTT Ratio Sodium 141 Potassium 3.9 Chloride 109 H Carbon Dioxide 25 Anion Gap 7.0 BUN 12 Creatinine 0.88 Est Cr Clr Drug Dosing 67.6 Est GFR ( Amer) 81.6 Est GFR (Non-Af Amer) 70.4 BUN/Creatinine Ratio 13.1 Glucose 105 H POC Glucose Estimat Average Glucose Pending Hemoglobin A1c Pending Calcium 8.6 Magnesium 2.1 Total Bilirubin 0.4 AST 11 L ALT 14 Alkaline Phosphatase 54 Troponin I < 0.015 Total Protein 8.5 H Albumin 3.2 L Globulin 5.3 H Albumin/Globulin Ratio 0.6 L TSH 1.480 Blood Type Antibody Screen 10/15/19 14:01 WBC RBC Hgb Hct MCV MCH MCHC RDW Std Deviation RDW Coeff of Zack Plt Count MPV Immature Gran % (Auto) Neut % (Auto) Lymph % (Auto) [place] % (Auto) Eos % (Auto) Baso % (Auto) Neut # (Auto) Lymph # (Auto) [place] # (Auto) Eos # (Auto) Baso # (Auto) Immature Gran # (Auto) PT INR APTT PTT Ratio Sodium Potassium Chloride Carbon Dioxide Anion Gap BUN Creatinine Est Cr Clr Drug Dosing Est GFR ( Amer) Est GFR (Non-Af Amer) BUN/Creatinine Ratio Glucose POC Glucose 115 H Estimat Average Glucose Hemoglobin A1c Calcium Magnesium Total Bilirubin AST ALT Alkaline Phosphatase Troponin I Total Protein Albumin Globulin Albumin/Globulin Ratio TSH Blood Type Antibody Screen Diagnostic Findings MR brain wo/w con IMPRESSION: 1. Moderate cerebral atrophy for age. 2. Mild chronic small vessel change. 3. No evidence for an acute ischemic insult. MR orbits IMPRESSION: Normal study. Code Status & VTE Plan VTE Prophylaxis Plan VTE Prophylaxis will be ordered: Yes PG Care Time/CCT Total # of Minutes Spent Total Time Spent with Patient: Total time spent is greater than 50% in coordination of care (as documented) at patient's floor/unit and/or counseling patient: Coding Level of Care Code 96707 Initial Inpt Care Lvl 3 Diagnoses Diplopia H53.2 Vertigo R42 Arrhythmia I49.9 Prediabetes R73.03 Tobacco abuse Z72.0
[2019-10-15] MEDS ORDERED: GADOBUTROL 65ML VIAL IV PRN (17:22)
--- NOTE | 2019-10-15 17:49 | Magnetic Resonance Report ---
MR brain wo/w con CLINICAL HISTORY: vertigo/EOM palsy eval for stroke mental status change COMPARISON STUDY: No previous studies for comparison. TECHNIQUE: Utilizing a 1.5 Dai magnet and dedicated coil, multiplanar, multiecho imaging of the br ain was performed pre and postcontrast administration. IV administration of 8.5 mL of Gadavist contr ast was uneventful. FINDINGS: Diffusion images show no evidence for an acute ischemic event. There are findings of mild t o moderate cerebral atrophy for age. Mild chronic small vessel change is present. The ventricular system is midline. Sella and parasellar regions are unremarkable. The internal auditory canals are symmetric. Postcontrast images show no evidence for abnormal postcontrast enhancement. IMPRESSION: 1. Moderate cerebral atrophy for age. 2. Mild chronic small vessel change. 3. No evidence for an acute ischemic insult. ACT 112: Negative or not required by law. The above report was generated using voice recognition software. It may contain grammatical, syntax or spelling errors. Electronically signed by: Inocencio Moran M.D. 10/15/2019 5:47 PM
--- NOTE | 2019-10-15 17:53 | Magnetic Resonance Report ---
Study: MRI orbits HISTORY: Mental status change. Vision change. COMPARISON: None. FINDINGS: Normal signal characteristics of the globes. Normal signal characteristics of the optic ner ves as well as extraocular muscles. No evidence for abnormal postcontrast enhancement. No evidence for proptosis. Moderate cerebral atrophy. IMPRESSION: Normal study. Electronically signed by: Inocencio Moran M.D. 10/15/2019 5:52 PM
[2019-10-15] MEDS ORDERED: ACETAMINOPHEN 500 MG TAB PO PRN (18:01)
[2019-10-15] MEDS ORDERED: POLYETHYLENE (MIRALAX) 17 GM PACK PO PRN (18:01)
[2019-10-15] MEDS ORDERED: ONDANSETRON INJ 2 MG/ML 2 ML VIAL IV PRN (18:01)
[2019-10-15] MEDS ORDERED: PHARMACIST DISCHARGE MED REC CONSULT PRN (18:01)
[2019-10-15] MEDS ORDERED: ENOXAPARIN INJ 40 MG/0.4 ML SYR SQ SCH (21:00)
[2019-10-16 05:54] LABS: Estimated Average Glucose 128 mg/dl; Hemoglobin A1C 6.1 % (4.5-5.6)
--- NOTE | 2019-10-16 06:53 | Electrocardiogram Report ---
Test Reason : Blood Pressure : / mmHG Vent. Rate : 070 BPM Atrial Rate : 070 BPM P-R Int : 144 ms QRS Dur : 088 ms QT Int : 428 ms P-R-T Axes : 062 042 059 degrees QTc Int : 462 ms Sinus rhythm with occasional Premature ventricular complexes Otherwise normal ECG When compared with ECG of 08-OCT-2017 08:42, Nonspecific T wave abnormality has improved Confirmed by Simone Mosley ([id number]) on 10/16/2019 6:52:33 AM Referred By: REFERRED SELF Confirmed By:Simone Mosley
[2019-10-16 07:10] LABS: Basophils # (auto) 0.03 K/uL (0-0.2); Basophils % (auto) 0.5 %; Eosinophils # (auto) 0.11 K/uL (0-0.5); Eosinophils % (auto) 1.7 %; Hematocrit (blood only) 37.6 % (37-47); Hemoglobin 12.3 g/dL (12.0-16.0); Immature Granulocytes # (auto) 0.01 K/uL (0.00-0.02); Immature Granulocytes % (auto) 0.2 %; Lymphocytes # (auto) 2.57 K/uL (1.2-3.4); Lymphocytes % (auto) 40.6 %; Mean Corpuscular Hemoglobin 31.1 pg (25-34); Mean Corpuscular Hgb Conc 32.7 g/dL (32-36); Mean Corpuscular Volume 95.2 fL (80-100); Mean Platelet Volume 10.4 fL (7.4-10.4); Monocytes # (auto) 0.44 K/uL (0.11-0.59); Neutrophils # (auto) 3.17 K/uL (1.4-6.5); Platelet Count 302 K/uL (130-400); RDW Coefficient of Variation 14.6 % (11.5-14.5); RDW Standard Deviation 50.9 fL (36.4-46.3); Red Blood Count 3.95 M/uL (4.2-5.4); White Blood Count 6.33 K/uL (4.8-10.8)
[2019-10-16 07:43] LABS: BUN Creatinine Ratio 12.3 (10-20); Calcium 8.8 mg/dl (8.5-10.1); Creatinine Clr Calc Pharmacy 73.1 ml/min; Est GFR (African American) 85.1; Est GFR (Non-African American) 73.4; Potassium 3.5 mmol/L (3.5-5.1)
[2019-10-16] MEDS ORDERED: ASPIRIN 81 MG ECTAB PO SCH (09:00)
[2019-10-16] MEDS ORDERED: CHOLECALCIFEROL 1,000 UNITS 25 MCG TAB PO SCH (09:00)
--- NOTE | 2019-10-16 09:12 | Neurology Consultation ---
Date of Consultation October 16, 2019 Assessment & Plan (1) Acute CVA (cerebrovascular accident): (2) JUAN CARLOS (internuclear ophthalmoplegia): (3) Extraocular muscle palsy of right eye: (4) Diplopia: (5) Vertigo: (6) Aneurysm of left internal carotid artery: This patient has the acute onset of double vision, nystagmus, and visual disturbance October 14 with a right internuclear ophthalmoplegia present. This is a very small right pontine CVA, involving the medial longitudinal fasciculus. It extends a little bit more into the brainstem as there is some mild abduction issue in the right eye (6th nerve palsy) with nystagmus in both eyes in most gazes. There are no other neurologic deficits, focal findings, meningeal signs, or encephalopathy. MRI of the brain did not show an actual stroke on diffusion imaging likely because of the small nature and location of this pontine stroke. Risk factors for stroke include firstly cigarette smoking of a chronic longstanding nature. There is very minimal elevation in glucose (hemoglobin A1c 6.1) and elevated total cholesterol of 237. She does not have a history of hypertension or significant cardiac dysrhythmia. She has an incidental 2 millimeter aneurysm noted in the supraclinoid area of the left internal carotid artery Recommendations: 1. Agree with 81 milligram aspirin tablet daily. 2. Discontinue all cigarette smoking. Patient understands this. 3. Echocardiogram is pending. 4. We could repeat an MRI of the brain without contrast in a day or so to see if we can see the very small pontine acute stroke but this will likely not change our treatment plan and is not necessary. 5. Initiate statin. Technically she would be a high dose statin candidate. 6. Consider ESR, EMEKA 12, and B12 7. Following discharge she would need an ophthalmology consult with Dr. Thomas 8. I would follow this patient as an outpatient in 2-3 weeks as well. Overall, I spent a total of 120 minutes with this case including review of records, review of MRI films (with Dr. Mcclelland radiologist), direct evaluation the patient bedside, and discussion of the case with the patient and RN at bedside, and Dr. Narayan including differential diagnosis and treatment options. History of Present Illness Reason for Consultation: Patient is a 64-year-old, who I was asked to see at the request of Dr. Narayan, for neurologic consultation regarding acute onset double vision and eye movement issues. Requesting Physician: Dr. Narayan Attending Physician: Cedric Narayan DO History of Present Illness Patient has a history of cigarette smoking since age 20 she currently smokes about per day. She has no history of hypertension but does have a history of pre diabetes or (on no medication) and SVT and PVC events in the past (also medication). She has no history of ocular problems although she sees an carding doubler once a year for dry eyes. Patient has been doing well recently with no significant illnesses. She tends to go to bed somewhere between 4 or 6 in the morning and wake up anywhere from noon to 2pm. She went to bed on the morning of October 14 at 0600 as usual and woke up at noon. She immediately upon wakening noted double vision and a sensation of movement with her vision feeling pulled to the left. She had no eye pain or headache, ear pain, tinnitus, or hearing loss. When she covered 1 eye or the other there was no double vision but she still has a sense of movement to the environment. There may be 2 of an object but she feels it is more of a twisted vision at times also. This gives her a sense of nausea but no vomiting. She feels dizzy/vertiginous and well lean to the left. This is t rue with sitting or standing. She has trouble reaching for an object (depth perception) with either hand. She denies any weakness or numbness of the limbs, confusion, speech problems, incontinence, or swallowing issues. She arrived to the emergency room October 14 at 1304 with a temperature of 36.4, pulse 78, respiratory rate 20, blood pressure 139/79, and O2 saturation 99 percent. Her examination was described as inability the right eye to move medially and nystagmus with lateral gaze on the left. There was rotary nystagmus described as well. No other focal deficit, meningeal signs, or encephalopathy was noted. CBC and Chem profile were unremarkable. Glucose was 105. TSH was 1.48. CT scan of the head was unremarkable. CT angiography of the head neck was unremarkable as well although there was a tiny (2 millimeter) aneurysm in the supraclinoid area of the left internal carotid artery. MRI of the brain with and without contrast showed no acute stroke and no tumor or enhancement. I reviewed this film with Dr. Mcclelland. There is mild to moderate cerebral atrophy possibly out of proportion to age, and mild diffuse nonspecific old small vessel ischemic disease. This morning, CBC and Chem profile were unremarkable (glucose 85), hemoglobin A1c 6.1, and fasting lipid profile remarkable for a cholesterol of 237. Triglyceride was 119. Clinically she is about the same with her vision this morning compared to yesterday. Overnight she had sinus rhythm in the 50s and 60s with occasional PVCs and 2 small (3 second) bursts of PA T. This morning she has been in sinus rhythm in t he 60s and 70s. Allergies Allergy/AdvReac Type Severity Reaction Status Date / Time thimerosal Allergy Unknown EYE Verified 10/15/19 14:27 SWELLING DURING EYE DROP USE Home Medications Home Medications Medication Instructions Recorded Confirmed Type acetaminophen 1,000 mg PO Q6H PRN 01/05/18 10/15/19 History cholecalciferol (vitamin D3) 50 2,000 units PO DAILY 03/20/19 10/15/19 History mcg (2,000 unit) tablet cyclosporine [Restasis] 1 drp OPB BID 10/15/19 10/15/19 History Patient History Medical History Arrhythmia HX PVC'S/NSVT/SVT Chronic pain in left foot FELT 2/2 PRIOR FRACTURE (2ND METATARSAL) Emphysema lung H/O infertility History of deviated nasal septum Kidney stones Prediabetes DIET CONTROLLED Surgical History H/O branchial cleft cyst S/P EXCISION (LEFT) H/O breast biopsy benign lump, 1977 H/O esophagogastroduodenoscopy History of colonoscopy History of cystoscopy with ureteroscopy History of lumpectomy of right breast History of removal of calculus of renal pelvis through percutaneous nephrostomy History of tonsillectomy 1966 History of tooth extraction Family History Mother Family history of diabetes mellitus Lupus Systemic lupus erythematosus Acute subdural hematoma Grandmother No problems noted. Aunt Diabetes maternal Father No problems noted. Grandfather History of esophageal cancer Sister Hypertension Rheumatoid arthritis Dyslipidemia Atrial fibrillation Uncle Cardiac disorder maternal Grandfather (Maternal) Esophageal cancer Grandmother (Paternal) Dementia Grandmother (Maternal) Breast cancer Dx 80's/90's Father , in 20s of a motor vehicle accident No problems noted. Other Bladder cancer Denies family history of Colon cancer Ovarian cancer Social History (Updated 10/16/19 @ 09:19 by Miko Dunn MD) Preferred Language: Pashto Communication Ability: Effective Visual Impairment: No Limitations Nursing Program Director Required: No Beliefs That Will Affect Care: None Current Living Situation: Spouse current occupational status: retired current occupation: Retired November 2018 from [email or web address] Other Information That Helps Us Care for You: No Feels Safe at Home: Yes Safety Concerns: Feels Safe At This Time Smoking Status: Current every day smoker Tobacco Type: cigarettes ; Age Started Using Tobacco: 20 ; packs per day: 1 ; Cigarettes Per Day: X 40 YEARS ; Do You Dip or Chew Tobacco: No ; Second Hand Exposure: Yes (SPOUSE) ; Hx Alcohol Use: No Hx Substance Use: No Review of Systems Constitutional: no fever, no fatigue and no weakness Eyes: + corrective lenses, + diplopia, + dry eyes and + worsening vision; no eye pain, no loss of peripheral vision, no photophobia, not seeing flashes, no spots in vision and no tunnel vision Ear, Nose, Mouth, Throat: + tinnitus (Occasional pulsating sensation intermittently in the left ear.) and + dizziness; no ear pain, no hearing loss, no hoarseness and no dysphagia Respiratory: no cough and no dyspnea Cardiovascular: no chest pain, no palpitations and no lightheadedness Gastrointestinal: no abdominal pain, no nausea and no vomiting Genitourinary: no dysuria, no urinary frequency and no urinary incontinence Musculoskeletal: no back pain, no neck pain, no radicular pain, no joint pain and no myalgia Integumentary: no rash and no lesions Neurologic: + unsteadiness and + dizziness; no gait abnormality, no localized weakness, no generalized weakness, no tingling, no numbness, no tremor(s), no abnormal movements, no headache(s), no abnormal speech, no confusion and no memory loss Psychiatric: no depression, no irritability, no anxiety, no difficulty concentrating, no confusion and no hallucinations Endocrine: no fatigue and no flushing Hematologic / Lymphatic: no easy bleeding and no easy bruising Allergy / Immunological: no urticaria and no problem reported Exam (Neuro) Physical Exam: The patient is right-handed. The patient is awake, alert, and attentive. Speech is normal without any aphasia or dysarthria. She can name objects, repeat phrases, and has normal spontaneous speech. Mentation and thought processes are intact, with orientation to person, place and time, and normal fund of knowledge. Attention and concentration are normal. Mood and affect are normal and appropriate. General appearance and grooming are normal. Short and long-term memory are intact. The discs are sharp with positive venous pulsations bilaterally. There are no exudates, hemorrhages, or blood vessel changes seen. Pupils are 3 mm bilaterally and reactive to light. With spontaneous, neutral gaze there is some nystagmus noted in the left eye with the left eye drifting to the left and her fixating with the right eye. When she looks to the left, the right eye cannot adduct past midline and the left eye abducts with significant nystagmus. When she looks to the right, the right eye cannot quite fully abduct and has nystagmus and the right eye fully adducts also with nystagmus. With up and down gaze the right eye moves normally while the left eye moves but tends to drift laterally. When testing the right eye separately (covering the left eye), it cannot adduct past midline but seems to abduct fairly fully. When testing the left eye separately, there is nystagmus in all directions but increased when abducting. There are no deficits to sensation in the face in all 3 distributions of the fifth cranial nerve bilaterally. Corneal reflexes are positive bilaterally. There is a chronic asymmetry of the face with the right being not quite as mobile as the left but both sides move well involuntarily with smile. Hearing seems normal to whisper and finger rub bilaterally. Palate moves well without asymmetry. There is normal sternocleidomastoid and trapezius (shoulder shrug) strength bilaterally. Tongue is midline with good strength bilaterally. Neck has a full range of motion without discomfort. There are no cervical bruits bilaterally. There are no cranial or ocular bruits. Heart is without murmur. There is a regular rhythm and rate. Cervical, thoracic, and lumbar spine are nontender to palpation. Gait is narrow based with arm swing but cautious. She tends to lean to the left. Stance with eyes open and feet together is reasonable and she sways to the left with eyes closed. With outstretched arms there is no drift. There are no resting, postural, or action tremors. There is no ataxia with finger to nose testing. There is good facility in the hands. No other abnormal involuntary movements are noted. Motor strength is 5/5 diffusely in the arms bilaterally including deltoids, biceps, triceps, brachioradialis, wrist flexors and extensors, director meetings, and intrinsic hand muscles. Motor strength is 5/5 diffusely in the legs bilaterally including hip flexors, quadriceps, hamstrings, gastrocnemius, tibialis anterior, tibialis posterior, and Peroneii muscles. Toe extensors are normal and there is good bulk in the extensor digitorum brevis muscles bilaterally. The limbs have good tone without rigidity or spasticity. There is no atrophy noted in the muscles. Muscle bulk is normal, there is no tenderness to palpation, no myotonia to percussion, and no fasciculations seen. Sensory examination is intact to touch and pin throughout all 4 limbs diffusely. Reflexes are 2/4 in the biceps, triceps, brachioradialis, quadriceps, and Achilles tendons bilaterally. There is no clonus bilaterally. Toes are downgoing with plantar stimulation bilaterally. Peripheral pulses are present and of normal quality distally in all 4 limbs. There is no peripheral edema noted in the limbs. Results & Data ([facility]) Vital Signs (Past 12 Hours) Vital Signs Temp Pulse Pulse Resp BP BP Pulse Ox 10/16/19 08:17 36.9 C 66 18 136/78 92 10/16/19 07:29 58 L 10/16/19 03:51 36.5 C 64 18 109/70 93 10/15/19 23:19 36.9 C 77 16 124/72 94 Diagnostic Findings MR brain wo/w con CLINICAL HISTORY: vertigo/EOM palsy eval for stroke mental status change COMPARISON STUDY: No previous studies for comparison. TECHNIQUE: Utilizing a 1.5 Dai magnet and dedicated coil, multiplanar, multiecho imaging of the brain was performed pre and postcontrast administration. IV administration of 8.5 mL of Gadavist contrast was uneventful. FINDINGS: Diffusion images show no evidence for an acute ischemic event. There are findings of mild to moderate cerebral atrophy for age. Mild chronic small vessel change is present. The ventricular system is midline. Sella and parasellar regions are unremarkable. The internal auditory canals are symmetric. Postcontrast images show no evidence for abnormal postcontrast enhancement. IMPRESSION: 1. Moderate cerebral atrophy for age. 2. Mild chronic small vessel change. 3. No evidence for an acute ischemic insult. ACT 112: Negative or not required by law. The above report was generated using voice recognition software. It may contain grammatical, syntax or spelling errors. Electronically signed by: Inocencio Moran M.D. 10/15/2019 5:47 PM PG Care Time/CCT Total # of Minutes Spent Total Time Spent with Patient: Total time spent is greater than 50% in coordination of care (as documented) at patient's floor/unit and/or counseling patient: Coding Level of Care Code 33636 Office/OBS Consult Lvl 5 Diagnoses Acute CVA (cerebrovascular accident) I63.9 JUAN CARLOS (internuclear ophthalmoplegia) H51.20 Extraocular muscle palsy of right eye H49.9 Diplopia H53.2 Vertigo R42 Aneurysm of left internal carotid artery I67.1 Time Spent (min) 120 Comment Add [id number] to the [id number]
[2019-10-16] MEDS ORDERED: cycloSPORINE (RESTASIS) OPB SCH (10:00)
[2019-10-16] MEDS ORDERED: STROKE PATIENT DISCHARGE STA (13:50)
--- NOTE | 2019-10-16 13:51 | Discharge Summary ---
Date of Service October 16, 2019 Admission HPI Per Admitting Provider 64 yo female with history of pre-diabetes, tobacco abuse who woke up today at noon with new onset double vision and vertigo. She said that she went to bed a 6am and she felt fine. She said she felt normal all day yesterday as well. Eating and drinking normally. Normal vision. After sleeping for 6 hours she woke up at 1200 and immediately knew something was wrong. Her vision was double and the room was spinning. When she tried to walk she was leaning hard to the left, she did not fall but had to hold onto something and then had to sit down. She said that the double vision resolved by covering either one of her eyes, but she noticed the left eye was not as clear when seeing. No history of a similar episode. She has chronic dry eyes and her eyes are always dry, this has been going on for years. In the ED she clearly had some issues with EOM in both eyes. CT head and CTA head and neck were normal. Dr. Seaman discussed with Dr. Dunn, he recommended MRI brain and MRI orbits with and without contrast. Principal Diagnosis Ischemic stroke of brain stem, causing right internuclear ophthalmoplegia Discharge Exam Constitutional WD/WN, vitals as above Eyes + eyelid abnormality (mild ptosis on left), + scleral abnormality (red bilaterally), reactive pupils, + EOM movement deficit (right eye cannot adduct, left eye down and out, + nystagmus) and + nystagmus (left eye) ENMT external ear and nose normal, oropharynx normal Neck trachea midline, no thyromegaly Respiratory normal respiratory effort, lungs clear to auscultation Cardiovascular RRR, no murmur, no edema Gastrointestinal (Abdomen) normal bowel sounds, soft, nontender, no hepatosplenomegaly Musculoskeletal no cyanosis or clubbing, extremities motor strength 5/5 Skin no rashes, warm and dry Neurologic patellar DTR's 2+ bilat, sensation intact and PERRL, EOMI, accommodation nl, no face palsy, no dysarthria Psychiatric A+Ox3, euthymic affect Lymphatic no cervical or axillary lymphadenopathy Discharge Data Allergies Allergy/AdvReac Type Severity Reaction Status Date / Time thimerosal Allergy Unknown EYE Verified 10/15/19 14:27 SWELLING DURING EYE DROP USE Consultations 10/15/19 15:57 ED Decision to Admit Stat 10/15/19 18:01 Consult Case Management - Discharge Planning Routine Consult Neurology Routine Ordered Studies 10/15/19 13:49 CT angio head w con Stat CT angio neck with con Stat CT head/brain wo con Stat 10/15/19 15:46 MR brain wo/w con Stat MR orbit wo/w con Stat Hospital Course (1) JUAN CARLOS (internuclear ophthalmoplegia): sudden onset, concerning for ischemic stroke causing nerve palsy on exam, right eye cannot move medially past midline left eye is down and out, nystagmus is seen bilaterally strength is intact bilaterally, normal finger to nose testing, no pronator drift CT head normal, CTA head and neck without significant abnormality MRI brain with and without contrast, no acute stroke seen MR orbit, normal echo with bubble study - normal EF, no intra-cardiac shunt stroke order set with neuro checks d/w Dr. Dunn, patient has Ischemic stroke of brain stem, causing right internuclear ophthalmoplegia will d/c on aspirin 81mg daily, Lipitor 40mg daily stressed the importance of quitting cigarettes, she and committed to stopping will wear eye patch right eye, use rolling walker, instructed to not drive plan to follow up with PCP, eye doctor and Dr. Dunn discussed discharge plan with patient and her in detail (2) Acute CVA (cerebrovascular accident): see above (3) Diplopia: see above (4) Vertigo: resolved (5) Arrhythmia: h/o PVC, she wore a 30 day monitor and PVC were very infrequent (6) Prediabetes: diabetic diet, continue diet controlled (7) Tobacco abuse: smokes 1ppd for 40+ years educated on stopping as a need to decrease risk of further strokes Total Time Total Time Spent Total Time Spent (In Minutes): 32 minutes Total Time Includes: Examination of the Patient, Discharge Planning, Medication Reconciliation, Communication With Other Providers (Dr. Dunn) and Other (discussed with her ) Discharge Plan Discharge Items Patient Disposition: Home - Self-Care Reason For Visit: VERTIGO, DOUBLE VISION Discharge Diagnosis: Vertigo and double vision Ischemic stroke of brain stem, causing right internuclear ophthalmoplegia Tobacco abuse Dyslipidemia Pre-diabetes Condition on Discharge: Good Goals: medical management of stroke stop smoking follow up with eye doctor follow up with Dr. Dunn, neurologist Activity: Resume your previous activity Lifting: None Bathing: No limitations Sexual Activity: When tolerated Exercise/Sports: None Driving/Machine Use: no driving until cleared by eye doctor Weightbearing: Full weightbearing Non-emergency contact: Primary Care Provider and Neurologist Call non-emergency contact if: you have any medication questions and your symptoms worsen Follow-up/Referrals: Miko Dunn MD [Physician] - 12/12/19 1:45 pm (Please, follow up at [facility] Neu[facility] Office with Dr. Dunn on December 11 at 1:45 pm. *We booked you in the first available time slot. However, a nurse fromt his office is supposed to contact you with details for a sooner appointment. The office is located at [address] in [place]. If you have any questions, call the office at [phone].) Alejandro Bacon MD [Primary Care Provider] - Wilson Thomas MD [Physician] - (Please, follow up at [facility] with Dr. Wilson Thomas. *A nurse from this office will contact you with the appointment details. The office is located at [address] [place] [address] in [place]. If you have any questions, call the office at [phone].) Diet: Carb Consistent or DM2 and Heart Healthy Addtl Attending Provider Instructions: Medications: - ASPIRIN: 81mg daily - LIPITOR: 40mg daily, statin medication to reduce risk of future stroke Ischemic stroke, located in pontine (brain stem) causing right internuclear ophthalmoplegia symptoms will be self limiting, but could take a few weeks to resolve cause of stroke is small vessel ischemic disease risk factors for stroke are smoking, high cholesterol, pre-diabetes to modify those risk factors, we will do the following... take aspirin 81mg daily take Lipitor 40mg daily follow low fat, low carbohydrate diet your blood pressure is well controlled you need to STOP SMOKING for symptoms, wear eye patch over right eye, use cane in left hand or use rolling walker follow up with Dr. Thomas Risk Factors for Stroke: You can reduce your chances of stroke by working with your medical provider to adopt a healthy lifestyle. Some specific ways to lower your chance of stroke are: * If you are a smoker, now is the time to stop smoking cigarettes * If you are diabetic, improve the control of your blood sugars * Avoid excessive amounts of alcohol * Control high blood pressure * Lose weight if you are overweight * Be sure to lead an active lifestyle * Eat a healthy diet low in salt, cholesterol and fat You should know about other risk factors for stroke that you are unable to control. These include: * Age 55 years or older * Male gender * Certain racial groups: , or / * Family History of Stroke, Mini stroke or Heart Attack * Sickle Cell Disease Follow Up: It is important for you to keep your follow up appointments with your medical provider. Who to Call and When: Medical Emergencies: Call 911 immediately if you experience any of the following warning signs and symptoms of Stroke: * Sudden numbness or weakness of the face, arm or leg, especially on one side of the body * Sudden confusion, trouble speaking or understanding * Sudden trouble seeing in one or both eyes * Sudden trouble walking, dizziness, loss of balance or coordination * Sudden severe headache with no cause Do not delay calling 911 if you experience any warning signs or symptoms of a stroke. Delay in seeking medical attention may affect what treatments can be given to you. . Pending Studies at Discharge: No Stand-Alone Forms: Medications to Prevent Stroke, [facility], Smoking Cessation Medications and DC Order Prescriptions: New aspirin 81 mg Tablet,Delayed Release (Dr/Ec) 81 mg PO QAM 30 Days Qty: 30 RF: 3 atorvastatin [Lipitor] 40 mg tablet 40 mg PO DAILY Qty: 30 RF: 3 Continued cholecalciferol (vitamin D3) 2,000 unit tablet 2,000 units PO DAILY RF: 0 acetaminophen 500 mg Tablet 1,000 mg PO Q6H PRN (Reason: Pain) RF: 0 Restasis 0.05 % dropperette 1 drp OPB BID RF: 0 Discharge Orders: Discharge Order (Routine); Ordered 10/16/19 Ordered By: Cedric Vides/Other Patient Handouts: Planning to Quit Smoking, Staying Smoke-Free, Risk Factors for Stroke, Kicking the Smoking Habit Admission Data Admit Date/Time: 10/15/19 15:58 Attending Provider: Cedric Narayan Admit Provider: Cedric Narayan Primary Care Provider: Alejandro Bacon V. Other Providers: Cedric Narayan ; Miko Dunn Other Interventions: Discharge Summary Assessment (RN) Last Done: 10/16/19 14:26 DC Date/Time DO NOT enter until pt leaves facility: 10/16/19 16:00 Coding Level of Care Code 73067 OBS Care - Discharge Diagnoses JUAN CARLOS (internuclear ophthalmoplegia) H51.20 Acute CVA (cerebrovascular accident) I63.9 Diplopia H53.2 Vertigo R42 Arrhythmia I49.9 Prediabetes R73.03 Tobacco abuse Z72.0
--- NOTE | 2019-10-16 14:10 | Pharmacy Report ---
Pharmacist Stroke Counseling - Date of Service October 16, 2019 - Scope: Pharmacy has been consulted to provide medication discharge counseling for this patient admitted with ischemic stroke as per the Pharmacist Discharge Counseling for Stroke Patients Protocol. - Medications on Discharge: Home Medications Medication Instructions Recorded Confirmed acetaminophen 1,000 mg PO Q6H PRN 01/05/18 10/15/19 cholecalciferol (vitamin D3) 50 2,000 units PO DAILY 03/20/19 10/15/19 mcg (2,000 unit) tablet cyclosporine [Restasis] 1 drp OPB BID 10/15/19 10/15/19 New Rx's Medication Instructions Recorded aspirin 81 mg PO QAM 30 Days #30 tab 10/16/19 atorvastatin [Lipitor] 40 mg PO DAILY #30 tab 10/16/19 - Action: The above medications, specifically ones for stroke treatment/prophylaxis, have been reviewed in detail with the patient prior to discharge. This includes indication, common adverse reactions, drug interactions, and medication administration. Medication counseling has been employed using the teach-back method to ensure understanding. - Outcome: The patient has demonstrated understanding of the medications. Additional comments: - Counseling completed via telephone due to the COVID-19 pandemic - Patient was given ample time to have any/all questions answered - Demonstrated good knowledge of new medications Thank you for allowing pharmacy to be involved in the care of this patient. Please call [phone] with any additional questions
--- NOTE | 2019-10-16 18:50 | XCELERA ---
[id number]
[2019-10-17] MEDS ORDERED: DESTROY THIS MEDICATION ONE (12:32)
== END 2019-10-16 16:00 | disposition home or self-care (01) ==
LOC: ED 12:58 → 2S 12:58